=== PATIENT | female | born 1950 | race Caucasian/White ===

== ENCOUNTER 2018-01-22 03:47 | Emergency (ER) | payer OTHER, BC ==
--- OUTSIDE RECORDS SUMMARY | 2018-01-22 03:49 | XMS REPORT ---
:1950 Author Organization [employer] Care Team Providers Name Role Phone Raymond Courtney Provider Role Unavailable Allergies, Adverse Reactions, Alerts Substance Reaction Event Type Sulfa Allergy Info Not Available Drug Allergy Encounters Encounter Location Date Echo report [facility] Apr 21, 2016 Unknown [facility] Apr 01, 2016 Problems Problem Type Condition ICD-9 Code Onset Dates Condition Status Assessment Reflux esophagitis K21.0 Active Assessment Essential (primary) hypertension I10 Active Assessment Hyperlipidemia, unspecified E78.5 Active Problem Hyperlipidemia, unspecified E78.5 Active Problem Reflux esophagitis K21.0 Active Problem Essential (primary) hypertension I10 Active Assessment Chest pain, unspecified R07.9 Active Assessment Palpitations R00.2 Active Problem Chest pain, unspecified R07.9 Active Problem Palpitations R00.2 Active Medications Medication Code System Code Instructions Start End Date Status Dosage Date carvedilol MULTUM 35135 25 mg orally 2 Active 1 tab(s) times a day Zantac 150 MULTUM 4742 150 mg orally qd Active 1 tab(s) cyclobenzaprine MULTUM 12733 10 mg orally 3 Active 1 tab(s) times a day Crestor MULTUM 99210 10 mg orally Active 1 tab(s) once a day (at bedtime) Nexium MULTUM 72581 40 mg orally Active 1 cap(s) once a day Colace MULTUM 4971 sodium 100 mg Active 1 cap(s) orally 2 times a day spironolactone MULTUM 48281 25 mg orally Active 1 tab(s) daily Hydrocodone/Acetam Unknown 0 Active Unknown hydrochlorothiazide MULTUM 17074 12.5 mg-100 mg Active 1 tab(s) -losartan orally once a day Social History Social History Element Qualifiers Date Reported Caffeine: yes. frequency: Apr 01, 2016 Physical Activities: yes. Apr 01, 2016 Tobacco Use: . Smoking Status: never smoker Apr 01, 2016 Occupation: . retired Apr 01, 2016 Vital Signs Date/Time: Apr 01, 2016 Blood Pressure Diastolic 80 mm Hg Blood Pressure Systolic 118 mm Hg Weight 175 lbs Height 59 in Summary Purpose [employer]ClinicalWorks Submission
--- OUTSIDE RECORDS SUMMARY | 2018-01-22 03:49 | XMS REPORT ---
:1950 Author Organization [employer] Care Team Providers Name Role Phone Raymond Courtney Provider Role Unavailable Encounters Encounter Location Date Echo report [facility] Apr 21, 2016 Problems Problem Type Condition ICD-9 Code Onset Dates Condition Status Problem Hyperlipidemia, unspecified E78.5 Active Problem Reflux esophagitis K21.0 Active Problem Essential (primary) hypertension I10 Active Problem Chest pain, unspecified R07.9 Active Problem Palpitations R00.2 Active Social History Social History Element Qualifiers Date Reported Caffeine: yes. frequency: Apr 01, 2016 Physical Activities: yes. Apr 01, 2016 Tobacco Use: . Smoking Status: never smoker Apr 01, 2016 Occupation: . retired Apr 01, 2016 Summary Purpose eClinicalWorks Submission
--- OUTSIDE RECORDS SUMMARY | 2018-01-22 03:49 | XMS REPORT | Continuity of Care Document ---
:1950 Author Organization Interface Problems Problem Status Onset Classification Date Comments Source Date Reported Hyperlipidemia, Active Diagnosis 04/23/2016 Comp [facility] Reflux Active Diagnosis 04/23/2016 Comp esophagitis [facility] Essential Active Diagnosis 04/23/2016 Comp hypertension [facility] Chest pain, Active Diagnosis 04/23/2016 Comp unspecified [facility] Palpitations Active Diagnosis 04/23/2016 [facility] Medications Medication Details Route Status Patient Ordering Order Source Instructions Provider Date carvedilol 1 tab(s) orally Active 25 mg orally 2 Courtney Comp times a day [facility] Zantac 150 1 tab(s) orally Active 150 mg orally Courtney Comp qd [facility] cyclobenzaprine 1 tab(s) orally Active 10 mg orally 3 Courtney Comp times a day [facility] Crestor 1 tab(s) orally Active 10 mg orally Courtney Comp once a day (at Heart bedtime) Care Nexium 1 cap(s) orally Active 40 mg orally Courtney Comp once a day [facility] Colace 1 cap(s) orally Active sodium 100 mg Courtney Comp orally 2 times Heart a day Care spironolactone 1 tab(s) orally Active 25 mg orally Courtney Comp daily [facility] Hydrocodone/Acetam Unknown NA Active Court[facility] hydrochlorothiazid 1 tab(s) orally Active 12.5 mg-100 mg Courtney Comp e-losartan orally once a Heart day Care Allergies, Adverse Reactions, Alerts Substance Category Reaction Severity Reaction Status Date Comments Source type Reported Sulfa Adverse Info Not Adverse Active Comp Allergy Reaction Available Reaction 6 [facility] Immunizations Immunization Date Given Site Status Last Updated Comments Source Results Order Results Value Reference Date Interpretation Comments Source Name Range Vital Signs Vital Sign Value Date Comments Source Diastolic (mm Hg) 80 04/01/2016 [facility] Systolic (mm Hg) 118 04/01/2016 [facility] Weight 175 04/01/2016 [facility] Height 59 04/01/2016 [facility] Encounters Location Location Encounter Encounter Reason Attending ADM DC Status Source Details Type Number For Provider Date Date Visit Comprehensive Unknown [id number] 04/01 04/01 [facility] [id number] /2015 [facility] [id number] Care [id number] [facility] [id number] 04/21 04/21 [facility] report [id number] /2015 [facility] [id number] [facility] [id number] [facility] [id number] 04/21 04/21 [facility] report [id number] /2015 [facility] [id number] Care [id number] Procedures Procedure Code Date Perfomer Comments Source
[2018-01-22] MEDS ORDERED: ONDANSETRON 4 MG/2 ML VIAL ONE ×2 (04:17→05:20)
[2018-01-22] MEDS ORDERED: FENTANYL CITR 100 MCG/2 ML ONE (04:17)
[2018-01-22 04:40] LABS: ALT/SGPT 43 U/L (12-78); AST/SGOT 36 U/L (15-37); Alkaline Phosphatase 127 U/L (45-117); BUN Blood Urea Nitrogen 12 mg/dL (7-18); Bicarbonate 26 mmol/L (21-32); Bilirubin Direct 0.2 mg/dL (0-0.2); Bilirubin Total 0.6 mg/dL (0.2-1.0); Glucose Level 110 mg/dL (74-106); Magnesium 2.1 mg/dL (1.8-2.4); NT PRO-BNP 116 pg/mL (<125); Potassium 3.2 mmol/L (3.5-5.1); Protein, Total 8.1 g/dL (6.4-8.2); Sodium Level 140 mmol/L (136-145); Troponin (Emerg Dept Use Only) < 0.02 ng/mL (0.0-0.045)
[2018-01-22 04:42] LABS: Protime INR 1.06
[2018-01-22 04:43] LABS: Absolute Lymphocytes (CBC) 2.9 K/uL (0.7-4.9); Absolute Monocytes 0.9 K/uL (0.1-1.3); Absolute Neutrophil 6.5 K/uL (1.8-8.0); Basophils % 0.4 % (0-1.3); Eosinophils % 1.7 % (0-4.4); Hematocrit 41.5 % (36.0-45.0); Lymphocytes % 27.2 % (15.3-44.8); MCH 32.3 pg (27.0-35.0); MCV 90.4 fL (80-100); MPV 8.4 fL (7.6-11.3); Monocytes % 8.7 % (3.3-12.3); RBC Red Blood Cell Count 4.59 M/uL (3.86-4.86)
--- NOTE | 2018-01-22 05:31 | EDPHYS ---
Physician Documentation [facility] Name: Diana Dominique Age: 67 yrs Sex: Female : 1950 Arrival Date: 01/22/2018 Time: 04:00 Bed 5 Private MD: Reynaldo Ely V ED Physician Toby Jordan HPI: 01/22 04:06 This 67 yrs old Female presents to ER via Wheelchair with complaints of Hip zahra Pain. 04:06 The patient or guardian reports decreased range of motion, pain. that occurred at home, zahra sustained from a fall, There is no obvious deformity, The patient is able to ambulate with assistance. The patient is able to bear partial body weight. There is no radiation of the patient's discomfort. The complaints affect the pelvis. Onset: The symptoms/episode began/occurred just prior to arrival. Modifying factors: The symptoms are alleviated by remaining still, the symptoms are aggravated by any movement. Associated signs and symptoms: Pertinent positives: None. Severity of symptoms: At their worst the symptoms were moderate, in the emergency department the symptoms have improved, moderately. The patient has not experienced similar symptoms in the past. Historical: - Allergies: 04:08 Sulfa (Sulfonamide Antibiotics); fc - Home Meds: 04:08 Purdy 5-325 mg Oral tab 1 tab twice a day [Active]; carvedilol 25 mg oral tab 1 tab 2 fc times per day [Active]; 04:24 Crestor 10 mg oral tab 1 tab once daily [Active]; omeprazole 40 mg Oral cpDR 1 cap once fc daily [Active]; oxybutynin chloride 10 mg Oral tr24 1 tab daily [Active]; losartan-hydrochlorothiazide 100-12.5 mg oral tab 1 tab once daily [Active]; tizanidine 2 mg oral tab 1 tabs three times a day [Active]; - PMHx: 04:08 Chronic pain; Hypertension; High Cholesterol; GERD; fc - PSHx: 04:08 bialteral hip replacements; Knee surgery; back surg; bilateral wrist surg; fc Hysterectomy; Cholecystectomy; hand surg; - Immunization history:: Last tetanus immunization: unknown, Flu vaccine is not up to date. - Social history:: Smoking status: Patient/guardian denies using tobacco. - Ebola Screening: : Patient negative for fever greater than or equal to 101.5 degrees Fahrenheit, and additional compatible Ebola Virus Disease symptoms Patient denies exposure to infectious person Patient denies travel to an Ebola-affected area in the 21 days before illness onset. - Family history:: not pertinent. ROS: 04:06 Constitutional: Negative for fever, chills, and weight loss, Eyes: Negative for injury, zahra pain, redness, and discharge, ENT: Negative for injury, pain, and discharge, Neck: Negative for injury, pain, and swelling, Cardiovascular: Negative for chest pain, palpitations, and edema, Respiratory: Negative for shortness of breath, cough, wheezing, and pleuritic chest pain, Abdomen/GI: Negative for abdominal pain, nausea, vomiting, diarrhea, and constipation, Back: Negative for injury and pain, : Negative for injury, bleeding, discharge, and swelling, Skin: Negative for injury, rash, and discoloration, Neuro: Negative for headache, weakness, numbness, tingling, and seizure, Psych: Negative for depression, anxiety, suicide ideation, homicidal ideation, and hallucinations, Allergy/Immunology: Negative for hives, rash, and allergies, Endocrine: Negative for neck swelling, polydipsia, polyuria, polyphagia, and marked weight changes, Hematologic/Lymphatic: Negative for swollen nodes, abnormal bleeding, and unusual bruising. 04:06 MS/extremity: Positive for decreased range of motion, pain, swelling, tenderness, of the pelvis, left hip, left gluteal fold, left inner thigh, left upper thigh and left quadriceps. Exam: 04:06 Constitutional: This is a well developed, well nourished patient who is awake, alert, zahra and in no acute distress. Head/Face: Normocephalic, atraumatic. Eyes: Pupils equal round and reactive to light, extra-ocular motions intact. Lids and lashes normal. Conjunctiva and sclera are non-icteric and not injected. Cornea within normal limits. Periorbital areas with no swelling, redness, or edema. ENT: Nares patent. No nasal discharge, no septal abnormalities noted. Tympanic membranes are normal and external auditory canals are clear. Oropharynx with no redness, swelling, or masses, exudates, or evidence of obstruction, uvula midline. Mucous membranes moist. Neck: Trachea midline, no thyromegaly or masses palpated, and no cervical lymphadenopathy. Supple, full range of motion without nuchal rigidity, or vertebral point tenderness. No Meningismus. Chest/axilla: Normal chest wall appearance and motion. Nontender with no deformity. No lesions are appreciated. Cardiovascular: Regular rate and rhythm with a normal S1 and S2. No gallops, murmurs, or rubs. Normal PMI, no JVD. No pulse deficits. Respiratory: Lungs have equal breath sounds bilaterally, clear to auscultation and percussion. No rales, rhonchi or wheezes noted. No increased work of breathing, no retractions or nasal flaring. Abdomen/GI: Soft, non-tender, with normal bowel sounds. No distension or tympany. No guarding or rebound. No evidence of tenderness throughout. Skin: Warm, dry with normal turgor. Normal color with no rashes, no lesions, and no evidence of cellulitis. Neuro: Awake and alert, GCS 15, oriented to person, place, time, and situation. Cranial nerves II-XII grossly intact. Motor strength 5/5 in all extremities. Sensory grossly intact. Cerebellar exam normal. Normal gait. Psych: Awake, alert, with orientation to person, place and time. Behavior, mood, and affect are within normal limits. 04:06 Back: ROM is painful, normal spinal alignment noted, CVA tenderness, is absent, vertebral tenderness, is not appreciated, muscle spasm, is appreciated in the left low back, left mid back, right mid back and right low back. Vital Signs: 04:00 BP 156 / 80; Pulse 84; Resp 20; Temp 97.6(O); Pulse Ox 100% on R/A; Weight 79.83 kg fc (R); Height 5 ft. 9 in. (175.26 cm) (R); Pain 10/10; 05:23 BP 146 / 75; Pulse 78; Resp 20; Pulse Ox 100% on R/A; Pain 8/10; fc 06:32 BP 144 / 68; Pulse 72; Resp 20; Pulse Ox 100% on R/A; Pain 3/10; fc 06:48 BP 124 / 76; Pulse 76; Resp 20; Temp 98.0(O); Pulse Ox 100% on R/A; Pain 2/10; fc 04:00 Body Mass Index 25.99 (79.83 kg, 175.26 cm) fc MDM: 04:09 Data reviewed: vital signs, nurses notes, lab test result(s), EKG, radiologic studies, [facility] CT scan, plain films. 04:10 Patient medically screened. [facility] 01/22 04:06 Order name: Basic Metabolic Panel [facility] 01/22 04:06 Order name: CBC with Diff; Complete Time: 05:26 [facility] 01/22 04:06 Order name: LFT's [facility] 01/22 04:06 Order name: Magnesium; Complete Time: 05: [facility] 01/22 04:06 Order name: NT PRO-BNP; Complete Time: 05: [facility] 01/22 04:06 Order name: PT-INR; Complete Time: 05: [facility] 01/22 04:06 Order name: Troponin (emerg Dept Use Only); Complete Time: 05: [facility] 01/22 04:06 Order name: XRAY Chest (1 view) [facility] 01/22 04:06 Order name: Pelvis XRAY [facility] 01/22 04:06 Order name: CT Lumbar Spine Wo Con [facility] 01/22 04:06 Order name: Hip Left 2 View XRAY [facility] 01/22 04:06 Order name: Femur Left XRAY [facility] 01/22 04:07 Order name: Basic Metabolic Panel; Complete Time: 05:26 [facility] 01/22 04:07 Order name: Liver (Hepatic) Function; Complete Time: 05: [facility] 01/22 04:06 Order name: EKG; Complete Time: 04:07 [facility] 01/22 04:06 Order name: Cardiac monitoring; Complete Time: 04: [facility] 01/22 04:06 Order name: EKG - Nurse/Tech; Complete Time: 04:18 [facility] 01/22 04:06 Order name: IV Saline Lock; Complete Time: 04: [facility] 01/22 04:06 Order name: Labs collected and sent; Complete Time: 04:09 [facility] 01/22 04:06 Order name: O2 Per Protocol; Complete Time: 04: [facility] 01/22 04:06 Order name: O2 Sat Monitoring; Complete Time: 04: [facility] 01/22 04:06 Order name: Femur Right XRAY [facility] 01/22 05:45 Order name: Pelvis Wo Cont EDMS Administered Medications: 04:15 Drug: Zofran 4 mg Route: IVP; Site: right antecubital; fc 04:45 Follow up: Response: No adverse reaction; Nausea is decreased fc 04:17 Drug: fentaNYL (PF) 50 mcg Route: IVP; Site: right antecubital; fc 04:45 Follow up: Response: No adverse reaction; Nausea is decreased fc 04:45 Follow up: Response: No adverse reaction; Pain is decreased fc 05:18 Drug: Zofran 4 mg Route: IVP; Site: right antecubital; fc 05:46 Follow up: Response: No adverse reaction; Nausea is decreased 05:20 Drug: fentaNYL (PF) 50 mcg Route: IVP; Site: right antecubital; fc 05:46 Follow up: Response: No adverse reaction; Pain is decreased fc 06:32 Drug: Potassium Effervescent Tablet 25 mEq Route: PO; 06:49 Follow up: Response: No adverse reaction; No change in condition Disposition: 01/22/18 05:30 Discharged to Home. Impression: Fall due to bumping against object, Pain in left hip, Other chronic pain, Hypokalemia. - Condition is Stable. - Discharge Instructions: Joint Pain, Back Pain, Adult, Chronic Back Pain, Chronic Pain, Potassium Content of Foods, Fall Prevention in the Home, Musculoskeletal Pain, Back Pain, Adult, [id number], Hip Pain. - Prescriptions for Tylenol- Codeine #3 300-30 mg Oral Tablet - take 2 tablet by ORAL route every 6 hours As needed; 30 tablet. Valium 2 mg Oral Tablet - take 1 tablet by ORAL route every 8 hours As needed; 20 tablet. - Medication Reconciliation Form, Thank You Letter, Antibiotic Education, Prescription Opioid Use form. - Follow up: Reynaldo Ely MD; When: 2 - 3 days; Reason: Recheck today's complaints, Continuance of care, Re-evaluation by your physician. Follow up: Rodrigo Benton MD; When: 2 - 3 days; Reason: Recheck today's complaints, Re-evaluation by your physician. - Problem is new. - Symptoms have improved. Signatures: Dispatcher [employer] Toby Gruber MD MD cha Chretien, Felicia RN RN fc Corrections: (The following items were deleted from the chart) 04:24 04:08 Home Meds: Crestor 20 mg oral tab 1 tab once daily; fc 04:24 04:08 Home Meds: Nexium 40 mg Oral cpDR 1 cap once daily; fc 04:24 04:08 Home Meds: Vesicare 10 mg oral tab 1 tab once daily; fc fc 04:24 04:08 Home Meds: losartan 100 mg oral tab 1 tab once daily; fc 06:09 05:45 Hip Left Wo Con ordered. [facility] EDMS 06:09 05:45 Hip Right Wo Con ordered. [facility] 06:26 05:30 01/22/2018 05:30 Discharged to Home. Impression: Fall due to bumping against zahra object; Pain in left hip; Other chronic pain; Hypokalemia. Condition is Stable. Forms are Medication Reconciliation Form, Thank You Letter, Antibiotic Education, Prescription Opioid Use. Follow up: Reynaldo Ely; When: 2 - 3 days; Reason: Recheck today's complaints, Continuance of care, Re-evaluation by your physician. Problem is new. Symptoms have improved. [facility] 07:16 06:26 01/22/2018 05:30 Discharged to Home. Impression: Fall due to bumping against fc object; Pain in left hip; Other chronic pain; Hypokalemia. Condition is Stable. Discharge Instructions: Joint Pain, Chronic Pain, Potassium Content of Foods, Fall Prevention in the Home, Musculoskeletal Pain, Hip Pain, Back Pain, Adult, Chronic Back Pain, Back Pain, Adult, [id number]. Prescriptions for Tylenol-Codeine #3 300-30 mg Oral Tablet - take 2 tablet by ORAL route every 6 hours As needed; 30 tablet, Valium 2 mg Oral Tablet - take 1 tablet by ORAL route every 8 hours As needed; 20 tablet. and Forms are Medication Reconciliation Form, Thank You Letter, Antibiotic Education, Prescription Opioid Use. Follow up: Reynaldo Ely; When: 2 - 3 days; Reason: Recheck today's complaints, Continuance of care, Re-evaluation by your physician. Follow up: Rodrigo Benton; When: 2 - 3 days; Reason: Recheck today's complaints, Re-evaluation by your physician. Problem is new. Symptoms have improved. zahra
--- NOTE | 2018-01-22 05:31 | ER ---
Nurse's Notes [facility] Name: Diana Dominique Age: 67 yrs Sex: Female : 1950 Arrival Date: 01/22/2018 Time: 04:00 Bed 5 Private MD: Reynaldo Ely V Diagnosis: Fall due to bumping against object;Pain in left hip;Other chronic pain;Hypokalemia Presentation: 01/22 04:00 Presenting complaint: Patient states: that she feel one week ago off the toilet and fc hurt her left hip. States that she heard something pop. Pain has gotten progressively worse since then. Transition of care: patient was not received from another setting of care. Onset of symptoms was January 14, 2018. Risk Assessment: Do you want to hurt yourself or someone else? Patient reports no desire to harm self or others. Initial Sepsis Screen: Does the patient meet any 2 criteria? No. Patient's initial sepsis screen is negative. Does the patient have a suspected source of infection? No. Patient's initial sepsis screen is negative. Care prior to arrival: None. 04:00 Method Of Arrival: Wheelchair fc 04:00 Acuity: ABDELRAHMAN 3 fc Triage Assessment: 04:00 General: Appears distressed, uncomfortable, slender, well groomed, Behavior is fc cooperative, appropriate for age, anxious. Pain: Complains of pain in left hip Pain currently is 10 out of 10 on a pain scale. Quality of pain is described as aching, sharp, shooting, Pain began 1 week ago Is continuous, Aggravated by increased activity, repositioning, weight bearing. EENT: No deficits noted. Neuro: Level of Consciousness is awake, alert, obeys commands, Oriented to person, place, time, situation. Cardiovascular: No deficits noted. Respiratory: No deficits noted. GI: No deficits noted. : No deficits noted. Derm: Skin is pink, warm \T\ dry. Musculoskeletal: Capillary refill < 3 seconds, Range of motion: limited in left hip. Historical: - Allergies: 04:08 Sulfa (Sulfonamide Antibiotics); fc - Home Meds: 04:08 Raccoon 5-325 mg Oral tab 1 tab twice a day [Active]; carvedilol 25 mg oral tab 1 tab 2 fc times per day [Active]; 04:24 Crestor 10 mg oral tab 1 tab once daily [Active]; omeprazole 40 mg Oral cpDR 1 cap once fc daily [Active]; oxybutynin chloride 10 mg Oral tr24 1 tab daily [Active]; losartan-hydrochlorothiazide 100-12.5 mg oral tab 1 tab once daily [Active]; tizanidine 2 mg oral tab 1 tabs three times a day [Active]; - PMHx: 04:08 Chronic pain; Hypertension; High Cholesterol; GERD; fc - PSHx: 04:08 bialteral hip replacements; Knee surgery; back surg; bilateral wrist surg; fc Hysterectomy; Cholecystectomy; hand surg; - Immunization history:: Last tetanus immunization: unknown, Flu vaccine is not up to date. - Social history:: Smoking status: Patient/guardian denies using tobacco. - Ebola Screening: : Patient negative for fever greater than or equal to 101.5 degrees Fahrenheit, and additional compatible Ebola Virus Disease symptoms Patient denies exposure to infectious person Patient denies travel to an Ebola-affected area in the 21 days before illness onset. - Family history:: not pertinent. Screenin:00 Abuse screen: Denies threats or abuse. Nutritional screening: No deficits noted. fc Tuberculosis screening: No symptoms or risk factors identified. Fall Risk None identified. Assessment: 04:05 Reassessment: No changes from previously documented assessment. Patient and/or family fc updated on plan of care and expected duration. Pain level reassessed. Patient is alert, oriented x 3, equal unlabored respirations, skin warm/dry/pink. See triage assessment. Dr Jordan at bedside to examine pt. 04:26 Reassessment: Pt has gone to radiology dept for xrays via stretcher. fc 05:11 Reassessment: No changes from previously documented assessment. Patient and/or family fc updated on plan of care and expected duration. Pain level reassessed. Patient is alert, oriented x 3, equal unlabored respirations, skin warm/dry/pink. Pt has returned from radiology. Having increased pain. Discussed with Dr Jordan. Pt to get Zofran and Fentanyl. 05:46 Reassessment: Pt attempted to move in the bed and pain is back. Dr Jordan in to see fc and talk with pt. Pt to get CT of hips and pelvis before discharge. 06:33 Reassessment: No changes from previously documented assessment. Patient and/or family fc updated on plan of care and expected duration. Pain level reassessed. Patient is alert, oriented x 3, equal unlabored respirations, skin warm/dry/pink. Pt given medication as ordered. Is pending results of last Ct Scan. 06:48 Reassessment: Dr Jordan discussed results with pt and along with discharge fc instructions. Vital Signs: 04:00 BP 156 / 80; Pulse 84; Resp 20; Temp 97.6(O); Pulse Ox 100% on R/A; Weight 79.83 kg fc (R); Height 5 ft. 9 in. (175.26 cm) (R); Pain 10/10; 05:23 BP 146 / 75; Pulse 78; Resp 20; Pulse Ox 100% on R/A; Pain 8/10; fc 06:32 BP 144 / 68; Pulse 72; Resp 20; Pulse Ox 100% on R/A; Pain 3/10; fc 06:48 BP 124 / 76; Pulse 76; Resp 20; Temp 98.0(O); Pulse Ox 100% on R/A; Pain 2/10; fc 04:00 Body Mass Index 25.99 (79.83 kg, 175.26 cm) ED Course: 04:00 Patient arrived in ED. fc 04:00 Reynaldo Ely MD is Private Physician. fc 04:00 Arm band placed on Patient placed in an exam room, on a stretcher. fc 04:00 Patient has correct armband on for positive identification. Placed in gown. Bed in low fc position. Call light in reach. Side rails up X2. Pulse ox on. NIBP on. 04:00 Initial lab(s) drawn, by me. Inserted saline lock: 20 gauge in right antecubital area, cc using aseptic technique. Blood collected. 04:01 Triage completed. fc 04:03 Toby Jordan MD is Attending Physician. [facility] 04:15 X-ray completed. Patient tolerated procedure poorly. Patient moved to radiology via ag1 stretcher. 04:21 EKG done, by ED staff, reviewed by Toby Jordan MD. cc 04:49 Radiology exam delayed due to PATIENT IS CURRENTLY IN XRAY. ag1 04:58 XRAY Chest (1 view) In Process Unspecified. EDMS 04:58 Pelvis XRAY In Process Unspecified. EDMS 04:58 Hip Left 2 View XRAY In Process Unspecified. EDMS 04:58 Femur Left XRAY In Process Unspecified. EDMS 04:58 Femur Right XRAY In Process Unspecified. EDMS 05:16 CT Lumbar Spine Wo Con In Process Unspecified. EDMS 05:27 Reynaldo Ely MD is Referral Physician. zahra 06:06 Pelvis Wo Cont In Process Unspecified. EDMS 06:26 Rodrigo Benton MD is Referral Physician. zahra 07:13 No provider procedures requiring assistance completed. IV discontinued, intact, fc bleeding controlled, No redness/swelling at site. Pressure dressing applied. Administered Medications: 04:15 Drug: Zofran 4 mg Route: IVP; Site: right antecubital; fc 04:45 Follow up: Response: No adverse reaction; Nausea is decreased fc 04:17 Drug: fentaNYL (PF) 50 mcg Route: IVP; Site: right antecubital; fc 04:45 Follow up: Response: No adverse reaction; Nausea is decreased fc 04:45 Follow up: Response: No adverse reaction; Pain is decreased fc 05:18 Drug: Zofran 4 mg Route: IVP; Site: right antecubital; fc 05:46 Follow up: Response: No adverse reaction; Nausea is decreased fc 05:20 Drug: fentaNYL (PF) 50 mcg Route: IVP; Site: right antecubital; fc 05:46 Follow up: Response: No adverse reaction; Pain is decreased fc 06:32 Drug: Potassium Effervescent Tablet 25 mEq Route: PO; fc 06:49 Follow up: Response: No adverse reaction; No change in condition fc Outcome: 05:30 Discharge ordered by . zahra 07:15 Discharged to home via wheelchair, with significant other. fc 07:15 Condition: good 07:15 Discharge instructions given to patient, significant other, Instructed on discharge instructions, follow up and referral plans. no drinking with medication, no driving heavy equipment, medication usage, Demonstrated understanding of instructions, follow-up care, medications, Prescriptions given X 2. 07:16 Patient left the ED. fc Signatures: Dispatcher [employer] Toby Gruber MD MD cha Chretien, Felicia, RN RN Meka Montenegro Ashley ag1 Corrections: (The following items were deleted from the chart) 04:24 04:08 Home Meds: Crestor 20 mg oral tab 1 tab once daily; [facility] 04: 04:08 Home Meds: Nexium 40 mg Oral cpDR 1 cap once daily; [facility] 04:16 08:08 Home Meds: Vesicare 10 mg oral tab 1 tab once daily; [facility] 04:16 08: Home Meds: losartan 100 mg oral tab 1 tab once daily; [facility]
[2018-01-22] MEDS ORDERED: POTASSIUM 25 MEQ EFFERV TAB ONE (06:22)
--- NOTE | 2018-01-22 06:40 | EKG ---
Test Date: 2018-01-22 Test Time: 04:20:08 Mammography Technologist: MIGUEL MEASUREMENT RESULTS: Intervals: Rate: 75 NE: 172 QRSD: 80 QT: 388 QTc: 433 Rindge: P: 68 NE: 172 QRS: 72 T: 78 INTERPRETIVE STATEMENTS: Normal sinus rhythm ST abnormality, possible digitalis effect Abnormal ECG No previous ECG available for comparison Electronically Signed On 01-22-18 06:40:34 CDT by Yuri Barry
--- NOTE | 2018-01-22 13:40 | RAD REPORT ---
EXAM DESCRIPTION: RAD - Chest Single View - 01/22/2018 4:59 am CLINICAL HISTORY: COUGH Chest pain. COMPARISON: Chest Pa And Lat (2 Views) dated 05/12/2017; Chest Single View dated 05/12/2017; CHEST PA AND LAT 2 VIEW dated 02/29/2012; CHEST PA AND LAT 2 VIEW dated 07/14/2001 FINDINGS: Portable technique limits examination quality. The lungs are grossly clear. The heart is normal in size. No displaced fractures. IMPRESSION: No acute intrathoracic process suspected.
--- NOTE | 2018-01-22 13:44 | RAD REPORT ---
EXAM DESCRIPTION: RAD - Hip Left 2 View - 01/22/2018 5:00 am CLINICAL HISTORY: PAIN History of fall FINDINGS: AP pelvis, left hip and left femur - multiple projections are submitted. Bilateral hip arthroplasties are noted. No unexpected or worrisome hardware finding. Evidence of bony fusion in the lower lumbar spine seen. No acute fracture or subluxation seen.
--- NOTE | 2018-01-22 13:47 | RAD REPORT ---
EXAM DESCRIPTION: RAD - Femur Right - 01/22/2018 5:00 am CLINICAL HISTORY: PAIN History of fall COMPARISON: No comparisons FINDINGS: Right total hip arthroplasty is noted. Right total knee arthroplasty also seen. No hardwar e complication suspected. No acute fracture seen.
--- NOTE | 2018-01-22 13:56 | RAD REPORT ---
EXAM DESCRIPTION: CT - Spine Lumbar Wo Con - 01/22/2018 7:33 am CLINICAL HISTORY: Radiculopathy. PAIN COMPARISON: L Spine With Bending Views dated 01/20/2018; Lumbar Spine 3 Views dated 09/01/2016 TECHNIQUE: Axial noncontrast CT imaging of the lumbar spine was performed with coronal and sagittal re-formatted images. All CT scans are performed using dose optimization technique as appropriate and may include automated exposure control or mA/KV adjustment according to patient size. FINDINGS: Postsurgical changes are present of posterior fusion spanning L2-[address] Chronic mild anterolisthesis of L3 on L4 and L4 on L5 is noted. Multilevel facet arthrosis is noted. No acute fracture suspected. Ossified disc protrusions along the right aspect at at L3-4 and L4-5 noted. Mild right-sided foramina l encroachment is caused by these. IMPRESSION: No acute lumbar spine abnormality. Extensive postsurgical fusion changes L2-5. No hardware failure suspected.
--- NOTE | 2018-01-22 14:24 | RAD REPORT ---
EXAM DESCRIPTION: CT - Pelvis Wo Cont - 01/22/2018 7:33 am CLINICAL HISTORY: PAIN Fall COMPARISON: No comparisons TECHNIQUE: All CT scans are performed using dose optimization technique as appropriate and may inclu de automated exposure control or mA/KV adjustment according to patient size. FINDINGS: Postsurgical changes are present lower lumbar spine. Bilateral hip arthroplasties. No hard griffiths complication evident. No acute fracture or subluxation. IMPRESSION: No acute abnormality detected.
--- NOTE | 2018-01-23 11:28 | RAD REPORT ---
EXAM DESCRIPTION: RAD - Pelvis - 01/22/2018 5:00 am CLINICAL HISTORY: PAIN History of fall FINDINGS: AP pelvis, left hip and left femur - multiple projections are submitted. Bilateral hip arthroplasties are noted. No unexpected or worrisome hardware finding. Evidence of bony fusion in the lower lumbar spine seen. No acute fracture or subluxation seen.
--- NOTE | 2018-01-23 11:29 | RAD REPORT ---
EXAM DESCRIPTION: RAD - Femur Left - 01/22/2018 5:00 am CLINICAL HISTORY: PAIN History of fall FINDINGS: AP pelvis, left hip and left femur - multiple projections are submitted. Bilateral hip arthroplasties are noted. No unexpected or worrisome hardware finding. Evidence of bony fusion in the lower lumbar spine seen. No acute fracture or subluxation seen.
== END 2018-01-22 07:16 | disposition home or self-care (01) ==
LOC: ER 03:47
DX: G89.29 Other chronic pain (principal); E87.6 Hypokalemia; W18.00XA Striking against unspecified object with subsequent fall, initial encounter; Y93.9 Activity, unspecified; Y92.009 Unspecified place in unspecified non-institutional (private) residence as the place of occurrence of the external cause; Z88.2 Allergy status to sulfonamides; I10 Essential (primary) hypertension; E78.00 Pure hypercholesterolemia, unspecified
CPT/HCPCS: 36415; 71045; 72131; 72170; 72192; 73502; 73552 ×2; 80048; 80076; 83735; 83880; 84484; 85025; 85610; 93005; 96374; 96375; 99284; J2405 ×2; J3010

== ENCOUNTER 2024-08-25 18:28 | Emergency (ER) | payer OTHER, BC ==
--- NOTE | 2024-08-25 20:17 | RAD REPORT ---
EXAMINATION: XR RIGHT HUMERUS HISTORY: fall;Pain RIGHT TECHNIQUE: Multiple views of the right humerus were obtained. COMPARISON: None FINDINGS: No acute bone or joint abnormality detected. Moderate AC joint degenerative changes. No foc al suspicious osseous lesion.
--- NOTE | 2024-08-25 20:24 | RAD REPORT ---
Exam: XR Forearm Right Clinical history: fall;Pain Technique: Radiographic views of the right forearm. Findings: No fracture or dislocation seen. Spurring along the medial humeral epicondyle, could reflect chronic tear or sprain along the common flexor origin.
--- NOTE | 2024-08-25 20:43 | RAD REPORT ---
EXAM: CT Thoracic Spine W/o Cont HISTORY: [facility] MAIN pain, fall Bed Name: [id number] COMPARISON: None TECHNIQUE: Multiple contiguous axial images were obtained in a CT of the thoracic spine without contr ast. Sagittal and coronal reformats were performed. One or more of the following dose reduction techniques were used: Automated exposure control, adjustment of the mA and kV according to patient si ze, and iterative reconstruction. Unless otherwise specified, incidental findings do not require dedicated imaging follow-up. FINDINGS: The vertebral bodies and intervertebral discs demonstrate normal height and alignment witho ut fracture or subluxation apart from stable moderate compression deformity at T12, with 5 mm retropulsion of the posterior cortex . Mild multilevel degenerative changes predominantly involving t he endplates, with up to mild degrees of bony foraminal narrowing along the mid thoracic spine.. . The prevertebral and paraspinal soft tissues are unremarkable. The included portions of the lungs and mediastinum are unremarkable. Sequelae of cholecystectomy are incidentally noted. Moderate sized sliding hiatal hernia is also seen. IMPRESSION: No evidence of acute osseous abnormality of the thoracic spine. Chronic appearing moderate compression fracture deformity at T12. Mild multilevel degenerative changes. Moderate-sized sliding hiatal hernia.
--- NOTE | 2024-08-25 20:54 | RAD REPORT ---
EXAMINATION: CT LUMBAR SPINE WITHOUT CONTRAST CLINICAL INDICATION: Female, 74 years old. PAIN TECHNIQUE: Axial CT images were obtained through the lumbar spine in soft tissue and bone windows wit hout intravenous contrast. Coronal and Sagittal reformatted images were created from the data set. One or more of the following dose reduction techniques were used: Automated exposure control, adjustm ent of the mA and/ or kV according to patient size, and/or iterative reconstruction. Unless otherwise specified, incidental findings do not require dedicated imaging follow-up. COMPARISON: 01/22/2019 FINDINGS: For purposes of this dictation, it is assumed that there are 5 non rib-bearing lumbar type vertebrae, and the most caudal fully segmented lumbar vertebra is labeled L5. ALIGNMENT: The lumbar spine demonstrates normal alignment without scoliosis or spondylolisthesis. BONES: Moderate superior endplate compression deformity at T12. Lumbar vertebral body heights are pre served. Sequelae of transpedicular fusion at the L2-3. Sequelae of posterior decompression spanning L3-, with interbody spacers at those levels. Osteopenia along this segment somewhat limits evaluation . No aggressive osseous lesions. DISCS: Intervertebral disc space heights are maintained. LEVELS: No significant bony canal stenosis. Facet and endplate remodeling contribute to the degrees o f neural foraminal narrowing most pronounced at L1-2 bilaterally, and to lesser extent at L5-S1. SOFT TISSUE: No soft tissue abnormalities. IMPRESSION: No acute lumbar spine abnormalities. Sequelae of prior deep reduction, fusion, and degenerative more es as above.
--- NOTE | 2024-08-25 20:58 | RAD REPORT ---
EXAMINATION: CT PELVIS WITHOUT CONTRAST CLINICAL INDICATION: Female, 74 years old.[facility] fall Bed Name: [id number] TECHNIQUE: CT pelvis was performed, without IV contrast, as per department protocol. Axial, sagittal and coronal reconstructions were obtained. One or more of the following dose reduction techniques were used: Automated exposure control, adjustment of the mA and/or kV according to patient size, and/ or iterative reconstruction. Unless otherwise specified, incidental findings do not require dedicated imaging follow-up. COMPARISON: 01/22/2019 FINDINGS: The lack of intravenous contrast limits the sensitivity of this exam for evaluation of solid visceral organs, vascular structures, and retroperitoneum. MUSCULOSKELETAL: No acute or suspicious osseous abnormality. Bilateral hip arthroplasty hardware in p lace, which results in streak artifact, somewhat limiting evaluation. URINARY SYSTEM: No abnormalities of the included kidneys and ureters. Urinary bladder is unremarkable . GASTROINTESTINAL TRACT: Included small bowel is normal in caliber. No wall thickening or bowel inflam matory changes. LYMPH NODES: No lymphadenopathy. ABDOMINAL AORTA AND OTHER VESSELS: Normal caliber aorta and IVC. ADDITIONAL FINDINGS: None. IMPRESSION: No acute abnormalities of the bony pelvis. Evaluation limited by lack of IV contrast.
--- NOTE | 2024-08-25 22:00 | EDPHYS ---
Physician Documentation [facility] Name: Diana Dominique Age: 74 yrs Sex: Female : 1950 Arrival Date: 08/25/2024 Time: 18:28 Bed 18 Private MD: ED Physician Toby Jordan HPI: 08/25 18:52 This 74 yrs old Female presents to ER via Wheelchair with complaints of Fall Injury. cp 18:52 Details of fall: The patient fell from an upright position, while standing, and struck cp a tile surface. Onset: The symptoms/episode began/occurred 2 day(s) ago. 18:52 Associated injuries: The patient sustained injury to the low back, pain, right forearm, cp contusion, ecchymosis, painful injury, right shoulder, painful injury. 18:52 Severity of symptoms: in the emergency department the symptoms are unchanged, despite cp home interventions. Historical: - Allergies: 18:52 Sulfa (Sulfonamide Antibiotics); cm10 - PMHx: 18:52 Chronic pain; GERD; High Cholesterol; Hypertension; Cerebral palsy; cm10 - Immunization history:: Adult Immunizations up to date. - Infectious Disease History:: Denies. - Immunization history: Last tetanus immunization: unknown. - Social history:: Smoking status: Patient denies any tobacco usage or history of. ROS: 18:55 Constitutional: Negative for body aches, chills, fever, poor PO intake, cp 18:55 Eyes: Negative for injury, pain, redness, and discharge, cp 18:55 ENT: Negative for drainage from ear(s), ear pain, sore throat, difficulty swallowing, difficulty handling secretions, 18:55 Neck: Negative for pain with movement, pain at rest, stiffness, 18:55 Cardiovascular: Negative for chest pain, palpitations, 18:55 Respiratory: Negative for cough, shortness of breath, wheezing, 18:55 Abdomen/GI: Negative for abdominal pain, vomiting, diarrhea, constipation, 18:55 Back: Positive for pain at rest, pain with movement, 18:55 MS/extremity: Positive for pain, of the right shoulder and right forearm, Negative for decreased range of motion, deformity, 18:55 Neuro: Negative for altered mental status, headache, loss of consciousness, syncope, near syncope, 18:55 All other systems are negative, Exam: 19:00 Constitutional: The patient appears in no acute distress, alert, awake, cp non-diaphoretic, non-toxic, well developed, well nourished, 19:00 Head/Face: Normocephalic, atraumatic. cp 19:00 Neck: C-spine: vertebral tenderness, is not appreciated, crepitus, is not appreciated, ROM/movement: is normal, is supple, without pain, no range of motions limitations, 19:00 Chest/axilla: Inspection: normal, Palpation: is normal, no crepitus, no tenderness, 19:00 Cardiovascular: Rate: normal, Rhythm: regular, JVD: is not appreciated, 19:00 Respiratory: the patient does not display signs of respiratory distress, Respirations: normal, no use of accessory muscles, no retractions, labored breathing, is not present, Breath sounds: are clear throughout, no decreased breath sounds, no stridor, no wheezing, 19:00 Abdomen/GI: Inspection: abdomen appears normal, Palpation: abdomen is soft and non-tender, in all quadrants, 19:00 Back: pain, that is moderate, of the mid back, ROM is normal, 19:00 Musculoskeletal/extremity: Extremities: noted in the right shoulder: pain, tenderness, There is no evidence of decreased ROM, deformity, noted in the right forearm: ecchymosis, pain, tenderness, no evidence of deformity, 19:00 Neuro: Orientation: to person, place \T\ time. Mentation: is normal, Motor: moves all fours, strength is normal, Sensation: is normal, Vital Signs: 18:51 BP 148 / 87; Pulse 81; Resp 18; Temp 97.8(O); Pulse Ox 100% on R/A; Weight 81.65 kg; cm10 Height 5 ft. 9 in. ; Pain 8/10; 21:21 BP 150 / 75; Pulse 78; Resp 20; Pulse Ox 100% on R/A; kj2 22:08 BP 148 / 78; Pulse 80; Resp 20; Temp 98; Pulse Ox 100% on R/A; kj2 18:51 Body Mass Index 26.58 (81.65 kg, 175.26 cm) cm10 18:51 Pain Scale: Adult cm10 [place] Coma Score: 20:10 Eye Response: spontaneous(4). Motor Response: obeys commands(6). Verbal Response: kj2 oriented(5). Total: 15. Trauma Score (Adult): 20:10 Eye Response: spontaneous(1); Verbal Response: oriented(1); Motor Response: obeys kj2 commands(2); Systolic BP: > 89 mm Hg(4); Respiratory Rate: 10 to 29 per min(4); [place] Score: 15; Trauma Score: 12 MDM: 18:55 Medical Screening Exam initiated zahra 21:00 Differential diagnosis: closed head injury, contusion, fracture, laceration, multiple cp trauma, spinal fracture. 22:00 Data reviewed: vital signs, nurses notes, radiologic studies, CT scan, plain films, and cp as a result, I will discharge patient. 22:00 I considered the following discharge prescriptions or medication management in the emergency department Medications were administered in the Emergency Department. See MAR. Counseling: I had a detailed discussion with the patient and/or guardian regarding the historical points, exam findings, and any diagnostic results supporting the discharge/admit diagnosis, radiology results, to return to the emergency department if symptoms worsen or persist or if there are any questions or concerns that arise at home. Response to treatment: the patient's symptoms have mildly improved after treatment, and as a result, I will discharge patient. 08/25 18:55 Order name: XRAY Humerus RIGHT; Complete Time: 21:46 08/25 21:46 Interpretation: Report reviewed. 08/25 18:55 Order name: XRAY Forearm RIGHT; Complete Time: 21:46 08/25 21:46 Interpretation: Reviewed. 08/25 18:55 Order name: CT Thoracic Spine Wo Cont; Complete Time: 21:46 08/25 21:47 Interpretation: Report reviewed. 08/25 18:55 Order name: CT Lumbar Spine Wo Con; Complete Time: 21:46 08/25 21:47 Interpretation: Report reviewed. 08/25 18:55 Order name: CT Pelvis wo Cont; Complete Time: 21:46 08/25 21:48 Interpretation: Report reviewed. cp Administered Medications: 22:26 Drug: Methocarbamol PO 750 mg PO once Route: PO; kj2 22:27 Follow up: Response: Medication administered at discharge. kj2 22:27 Drug: Hydrocodone-Acetaminophen PO (7.5 mg-325 mg) 1 tabs PO once; RASS on ADMIN: kj2 Combtv4, Very Agttd3, Agttd2, Rstlss1, AlertClm0, Drwsy-1, Lt Sdtn-2, Mod Sdtn-3, Dp Sdtn-4, UnArsble-5 Route: PO; 22:27 Follow up: Response: Medication administered at discharge. kj2 Disposition: 08/26 22:20 Co-signature as Attending Physician, Toby Jordan MD I agree with the assessment and zahra plan of care. Disposition Summary: 08/25/24 22:00 Discharge Ordered Notes: Location: Home cp Problem: new cp Symptoms: have improved cp Condition: Stable cp Diagnosis - Contusion of right forearm cp - Dorsalgia, unspecified cp - Pain in right shoulder cp - Fall on same level from slipping, tripping and stumbling with subsequent striking cp against object Followup: cp - With: Private Physician - When: 2 - 3 days - Reason: Worsening of condition Discharge Instructions: - Discharge Summary Sheet cp - Acute Back Pain, Adult cp - Contusion cp - Musculoskeletal Pain cp - Shoulder Pain cp - Shoulder Range of Motion Exercises cp - Back Exercises cp Forms: - Medication Reconciliation Form cp - Antibiotic Education cp - Prescription Opioid Use cp - Patient Portal Instructions cp - Leadership Thank You Letter cp Signatures: Dispatcher [employer] EDToby Roman MD MD cha Page, Corey, PA PA cp Sowmya Cruz, RN RN cm10 Karolina Norris, RN RN kj2 Corrections: (The following items were deleted from the chart) 08/25 18:56 18:56 Humerus Right+RAD.RAD.BRZ ordered. EDNM EDNM 18:56 18:56 Forearm Right+RAD.RAD.BRZ ordered. EDNM EDNM 18:56 18:56 Thoracic Spine WO Cont+CT.RAD.BRZ ordered. EDNM EDNM 18:56 18:56 Spine Lumbar Wo Con+CT.RAD.BRZ ordered. EDNM EDNM 18:56 18:56 Pelvis Wo Cont+CT.RAD.BRZ ordered. [facility] 08/26 21:02 08/25 18:52 Associated injuries: The patient sustained injury to the low back, pain, cp right forearm, contusion, ecchymosis, painful injury, cp
--- NOTE | 2024-08-25 22:00 | ER ---
Nurse's Notes [facility] Name: Diana Dominique Age: 74 yrs Sex: Female : 1950 Arrival Date: 08/25/2024 Time: 18:28 Bed 18 Private MD: Diagnosis: Contusion of right forearm;Dorsalgia, unspecified;Pain in right shoulder;Fall on same level from slipping, tripping and stumbling with subsequent striking against object Presentation: 08/25 18:51 Chief complaint: Patient states: Tripped and fell in bathroom on . Pt cm10 complaining of pain to left lower back, right arm and right shoulder. Pt did not hit head, No loc. Coronavirus screen: Client denies travel out of the [place] in the last 14 days. Ebola Screen: Patient denies travel to an Ebola-affected area in the 21 days before illness onset. Initial Sepsis Screen: Does the patient meet any 2 criteria? No. Patient's initial sepsis screen is negative. Does the patient have a suspected source of infection? No. Patient's initial sepsis screen is negative. Risk Assessment: Do you want to hurt yourself or someone else? Patient reports no desire to harm self or others. Onset of symptoms was August 25, 2024. 18:51 Method Of Arrival: Wheelchair cm10 18:51 Acuity: ABDELRAHMAN 3 cm10 20:12 Mechanism of Injury: Fall from standing position. Trauma event details: Injury kj2 occurred: August 25, 2024. 22:27 Care prior to arrival: None. kj2 Triage Assessment: 18:52 General: Appears in no apparent distress. comfortable, Behavior is calm, cooperative, cm10 appropriate for age. Pain: Complains of pain in left flank and right arm Pain currently is 8 out of 10 on a pain scale. Neuro: No deficits noted. Level of Consciousness is awake, alert, obeys commands, Oriented to person, place, time, situation, Appropriate for age. Respiratory: No deficits noted. Airway is patent Respiratory effort is even, unlabored, Respiratory pattern is regular, symmetrical. Historical: - Allergies: 18:52 Sulfa (Sulfonamide Antibiotics); cm10 - PMHx: 18:52 Chronic pain; GERD; High Cholesterol; Hypertension; Cerebral palsy; cm10 - Immunization history:: Adult Immunizations up to date. - Infectious Disease History:: Denies. - Immunization history: Last tetanus immunization: unknown. - Social history:: Smoking status: Patient denies any tobacco usage or history of. Screenin:35 [facility] ED Fall Risk Assessment (Adult) History of falling in the last 3 months, kj2 including since admission No falls in past 3 months (0 pts) Confusion or Disorientation No (0 pts) Intoxicated or Sedated No (0 pts) Impaired Gait No (0 pts) Mobility Assist Device Used No (0 pt) Altered Elimination No (0 pt) Score/Fall Risk Level 0 - 2 = Low Risk Maintained a safe environment, Hourly rounding (assess needs \T\ fall precautionary measures) done. Abuse screen: Denies threats or abuse. Denies injuries from another. Nutritional screening: No deficits noted. Tuberculosis screening: No symptoms or risk factors identified. Primary Survey: 19:35 NO uncontrolled hemorrhage observed. Breathing/Chest: Spontaneous respiratory effort, kj2 equal unlabored respirations, breath sounds clear bilaterally, regular pattern, symmetrical chest rise and fall. Respiratory effort: spontaneous, Breath sounds: clear. Circulation: No external hemorrhage present. Regular and strong central pulse, skin warm/dry/normal color. Disability Pupils are equal, round, reactive to light and accommodation. Exposure/Environment: All clothing and personal items were removed. Forensic evidence collection is not deemed to be indicated at this time. Items placed in patient belonging bag. 19:35 Reassessment Breathing: Spontaneous respiratory effort, equal unlabored respirations, kj2 breath sounds clear bilaterally, regular pattern with symmetrical chest rise and fall. Circulation: No external hemorrhage noted. Regular and strong central pulse, skin warm/dry/normal color. Disability: Pupils Pupils are equal, round, reactive to light and accomodation. Assessment: 19:35 General: Appears in no apparent distress. Behavior is calm, cooperative. Pain: kj2 Complains of pain in right arm and back and left flank Pain currently is 7 out of 10 on a pain scale. Neuro: Level of Consciousness is awake, alert, obeys commands, Oriented to person, place, time, situation. Cardiovascular: Patient's skin is warm and dry. Respiratory: Airway is patent Respiratory effort is even, unlabored. GI: No signs and/or symptoms were reported involving the gastrointestinal system. : No signs and/or symptoms were reported regarding the genitourinary system. 20:30 Reassessment: Patient appears in no apparent distress at this time. Patient and/or kj2 family updated on plan of care and expected duration. Pain level reassessed. Patient is alert, oriented x 3, equal unlabored respirations, skin warm/dry/pink. 21:21 Reassessment: Patient appears in no apparent distress at this time. Patient and/or kj2 family updated on plan of care and expected duration. Pain level reassessed. Patient is alert, oriented x 3, equal unlabored respirations, skin warm/dry/pink. 22:08 Reassessment: Patient appears in no apparent distress at this time. Patient and/or kj2 family updated on plan of care and expected duration. Pain level reassessed. Patient is alert, oriented x 3, equal unlabored respirations, skin warm/dry/pink. Vital Signs: 18:51 BP 148 / 87; Pulse 81; Resp 18; Temp 97.8(O); Pulse Ox 100% on R/A; Weight 81.65 kg; cm10 Height 5 ft. 9 in. ; Pain 8/10; 21:21 BP 150 / 75; Pulse 78; Resp 20; Pulse Ox 100% on R/A; kj2 22:08 BP 148 / 78; Pulse 80; Resp 20; Temp 98; Pulse Ox 100% on R/A; kj2 18:51 Body Mass Index 26.58 (81.65 kg, 175.26 cm) cm10 18:51 Pain Scale: Adult cm10 Viv[place] Coma Score: 20:10 Eye Response: spontaneous(4). Motor Response: obeys commands(6). Verbal Response: kj2 oriented(5). Total: 15. Trauma Score (Adult): 20:10 Eye Response: spontaneous(1); Verbal Response: oriented(1); Motor Response: obeys kj2 commands(2); Systolic BP: > 89 mm Hg(4); Respiratory Rate: 10 to 29 per min(4); [place] Score: 15; Trauma Score: 12 ED Course: 18:29 Patient arrived in ED. im 18:39 Toby Verduzco PA is PHCP. cp 18:39 Toby Jordan MD is Attending Physician. cp 18:52 Triage completed. cm10 18:52 Arm band placed on left wrist. Patient placed in waiting room. cm10 19:25 XRAY Humerus RIGHT In Process Unspecified. EDMS 19:25 XRAY Forearm RIGHT In Process Unspecified. EDMS 19:35 Patient has correct armband on for positive identification. Bed in low position. Call kj2 light in reach. Adult w/ patient. Provided Education on: call light. 19:55 Karolina Norris, RN is Primary Nurse. kj2 20:17 CT Thoracic Spine Wo Cont In Process Unspecified. EDMS 20:17 CT Lumbar Spine Wo Con In Process Unspecified. EDMS 20:17 CT Pelvis wo Cont In Process Unspecified. EDMS 22:16 No provider procedures requiring assistance completed. Patient did not have IV access kj2 during this emergency room visit. 22:16 Patient maintains SpO2 saturation greater than 95% on room air. Thermoregulation: warm kj2 intravenous fluids none needed. Administered Medications: 22:26 Drug: Methocarbamol PO 750 mg PO once Route: PO; kj2 22:27 Follow up: Response: Medication administered at discharge. kj2 22:27 Drug: Hydrocodone-Acetaminophen PO (7.5 mg-325 mg) 1 tabs PO once; RASS on ADMIN: kj2 Combtv4, Very Agttd3, Agttd2, Rstlss1, AlertClm0, Drwsy-1, Lt Sdtn-2, Mod Sdtn-3, Dp Sdtn-4, UnArsble-5 Route: PO; 22:27 Follow up: Response: Medication administered at discharge. kj2 Medication: 20:12 VIS not applicable for this client. kj2 Output: 20:10 Urine: 300ml (Voided); Total: 300ml. kj2 Outcome: 22:00 Discharge ordered by . cp 22:27 Discharged to home ambulatory, kj2 22:27 Condition: stable 22:27 Discharge instructions given to patient, family, Instructed on discharge instructions, follow up and referral plans. Demonstrated understanding of instructions, follow-up care, 22:27 Patient's length of stay was not longer than 2 hours. 22:30 Patient left the ED. kj2 Signatures: Dispatcher [employer] EDMS Toby Verduzco PA PA cp Mendoza, Itzel im Martinez, Clarissa, RN RN cm10 Karolina Norris, TYLER RN kj2
[2024-08-25] MEDS ORDERED: methocarbamoL 750 MG TAB ONE (22:11)
[2024-08-25] MEDS ORDERED: HYDROCODONE/APAP 7.5/325 MG TAB ONE (22:12)
[2024-08-25 23:32] VITALS: O2SAT 100
[2024-08-25 23:35] VITALS: BP 148/78; TEMP 98
== END 2024-08-25 22:30 | disposition home or self-care (01) ==
LOC: ER 18:28
DX: S50.11XA Contusion of right forearm, initial encounter (principal); M54.9 Dorsalgia, unspecified; M25.511 Pain in right shoulder; W01.198A Fall on same level from slipping, tripping and stumbling with subsequent striking against other object, initial encounter; G80.9 Cerebral palsy, unspecified
CPT/HCPCS: 72128; 72131; 72192; 99284

== ENCOUNTER 2024-11-27 12:14 | Emergency (ER) | payer OTHER, BC ==
[2024-11-27] MEDS ORDERED: LIDOCAINE 1% 20 ML MDV ONE (12:23)
--- NOTE | 2024-11-27 12:46 | EDPHYS ---
Physician Documentation [facility] Name: Diana Dominique Age: 74 yrs Sex: Female : 1950 Arrival Date: 11/27/2024 Time: 12:14 Bed 20 Private MD: ED Physician Nava Cardoza HPI: 11/27 12:18 This 74 yrs old Female presents to ER via Unassigned with complaints of laceration. kb 12:18 Pt is a 74 year old female who presents for laceration to left thumb that occurred just kb precinct captain. States she was trimming the fat off of a frozen roast and the knife slipped causing laceration. Reports last tetanus shot was years ago. . Historical: - Allergies: 12:27 Sulfa (Sulfonamide Antibiotics); iw - PMHx: 12:27 Cerebral Palsy; GERD; Hypertension; High Cholesterol; Chronic pain; iw - Immunization history:: Adult Immunizations up to date. - Infectious Disease History:: Denies. - Social history:: Smoking status: unknown. ROS: 12:19 Constitutional: As per HPI kb Exam: 12:19 Constitutional: This is a well developed, well nourished patient who is awake, alert, kb and in no acute distress. Head/Face: Normocephalic, atraumatic. ENT: Moist Mucous membranes Respiratory: Respirations even and unlabored. No increased work of breathing. Talking in full sentences MS/ Extremity: Pulses equal, no cyanosis. Neurovascular intact. Full, normal range of motion. Neuro: Awake and alert, GCS 15, oriented to person, place, time, and situation. 12:45 Skin: injury, laceration(s), the wound is approximately 2 cm(s), of the dorsal aspect kb of proximal phalanx of left thumb, that can be described as clean, no foreign body, linear, without bleeding, Vital Signs: 12:27 BP 115 / 89; Pulse 75; Resp 16; Temp 98.1; Pulse Ox 99% on R/A; Weight 73.94 kg; Height iw 5 ft. 8 in. ; 12:27 Body Mass Index 24.78 (73.94 kg, 172.72 cm) iw Laceration: 12:44 Wound Repair of 2cm ( 0.8in ) subcutaneous laceration to dorsal aspect of proximal kb phalanx of left thumb. Linear shaped.. Distal neuro/vascular/tendon intact. Anesthesia: Wound infiltrated with 2 mls of 1% lidocaine. Wound prep: Extensive cleansing with hibiclenz by me, Wound irrigation with saline by me. Skin closed with 5 5-0 Prolene using simple sutures and sterile technique. Patient tolerated well. MDM: 12:17 Medical Screening Exam initiated kb 12:19 Differential diagnosis: superficial laceration, tendon injury, vascular injury. Data kb reviewed: vital signs, nurses notes. Test considered but Not performed: X-ray: hand xray considered but pt has full rom, laceration is superficial. Historians other than the Patient: Spouse/Significant Other: spouse. Counseling: I had a detailed discussion with the patient and/or guardian regarding the historical points, exam findings, and any diagnostic results supporting the discharge/admit diagnosis, the need for outpatient follow up, a family practitioner, to return to the emergency department if symptoms worsen or persist or if there are any questions or concerns that arise at home. 11/27 12:17 Order name: Dressing - Wound; Complete Time: 12:56 kb 11/27 12:17 Order name: Gloves, Sterile; Complete Time: 12:56 kb 11/27 12:17 Order name: Prolene, Sutures; Complete Time: 12:56 kb 11/27 12:17 Order name: Setup Suture Tray; Complete Time: 12:56 kb Administered Medications: 12:47 Drug: Lidocaine Infiltration (1 %) 1 vials 5 ml Infiltration once; to bedside {Note: by ap3 erika mcclellan NP.} Volume: 5 ml; Route: Infiltration; 13:04 Follow up: Response: No adverse reaction ap3 13:03 Drug: Boostrix Tdap IM 0.5 ml IM once; as a single dose Route: IM; Site: right deltoid; ap3 13:04 Follow up: Response: (VIS) Vaccine information sheet provided today. Questions and/or ap3 concerns addressed. VIS edition date: Nov 28, 2020.; Medication administered at discharge. Disposition Summary: 11/27/24 12:45 Discharge Ordered Notes: Location: Home kb Condition: Stable kb Diagnosis - Laceration without foreign body of left thumb without damage to nail kb Followup: kb - With: Emergency Department - When: As needed - Reason: Worsening of condition Followup: kb - With: Private Physician - When: 2 - 3 days - Reason: Recheck today's complaints, Continuance of care, Re-evaluation by your physician Discharge Instructions: - Discharge Summary Sheet kb - Laceration Care, Adult, [id number] kb Forms: - Medication Reconciliation Form kb - Antibiotic Education kb - Prescription Opioid Use kb - Patient Portal Instructions kb - Leadership Thank You Letter gauri Signatures: Amber Mcclellan FNP-C FNP-Anel Alves RN RN iw Asia Richard RN RN ap3
--- NOTE | 2024-11-27 12:46 | ER ---
Nurse's Notes [facility] Name: Diana Dominique Age: 74 yrs Sex: Female : 1950 Arrival Date: 11/27/2024 Time: 12:14 Bed 20 Private MD: Diagnosis: Laceration without foreign body of left thumb without damage to nail Presentation: 11/27 12:26 Chief complaint: Patient states: was trying to trim fat off a frozen roast and cut her iw left thumb. Coronavirus screen: At this time, the client does not indicate any symptoms associated with coronavirus-19. Ebola Screen: No symptoms or risks identified at this time. Initial Sepsis Screen: Does the patient meet any 2 criteria? No. Patient's initial sepsis screen is negative. Does the patient have a suspected source of infection? No. Patient's initial sepsis screen is negative. Risk Assessment: Do you want to hurt yourself or someone else? Patient reports no desire to harm self or others. 12:26 Acuity: ABDELRAHMAN 4 iw 12:26 Method Of Arrival: Ambulatory iw 12:27 Onset of symptoms was November 27, 2024. iw Triage Assessment: 13:04 General: Appears in no apparent distress. Behavior is calm, cooperative, appropriate ap3 for age. Pain: Complains of pain in left hand. Neuro: Level of Consciousness is awake, alert, obeys commands, Oriented to person, place, time, situation, Appropriate for age. Derm: Wound noted left hand. Historical: - Allergies: 12:27 Sulfa (Sulfonamide Antibiotics); iw - PMHx: 12:27 Cerebral Palsy; GERD; Hypertension; High Cholesterol; Chronic pain; iw - Immunization history:: Adult Immunizations up to date. - Infectious Disease History:: Denies. - Social history:: Smoking status: unknown. Screenin:04 [facility] ED Fall Risk Assessment (Adult) History of falling in the last 3 months, ap3 including since admission No falls in past 3 months (0 pts) Confusion or Disorientation No (0 pts) Intoxicated or Sedated No (0 pts) Impaired Gait No (0 pts) Mobility Assist Device Used No (0 pt) Altered Elimination No (0 pt) Score/Fall Risk Level 0 - 2 = Low Risk Oriented to surroundings, Maintained a safe environment, Educated pt \T\ family on fall prevention, incl call for assistance when getting out of bed, Assessed \T\ reinforced patient's understanding of fall precautions, Hourly rounding (assess needs \T\ fall precautionary measures) done, Used ambulatory aids as needed (educated on \T\ assisted with). Abuse screen: Denies threats or abuse. Nutritional screening: No deficits noted. Tuberculosis screening: No symptoms or risk factors identified. Vital Signs: 12:27 BP 115 / 89; Pulse 75; Resp 16; Temp 98.1; Pulse Ox 99% on R/A; Weight 73.94 kg; Height iw 5 ft. 8 in. ; 12:27 Body Mass Index 24.78 (73.94 kg, 172.72 cm) iw ED Course: 12:16 Patient arrived in ED. kb 12:16 [facility] kb 12:16 Nava Cardoza MD is Attending Physician. kb 12:27 Triage completed. iw 12:28 Arm band placed on. iw 13:05 Assist provider with laceration repair on left hand using sutures. Set up tray. ap3 Performed by Amber SAEED Patient tolerated well. 13:06 Patient has correct armband on for positive identification. Provided Education on: ap3 discharge instructions. 13:06 Patient did not have IV access during this emergency room visit. ap3 Administered Medications: 12:47 Drug: Lidocaine Infiltration (1 %) 1 vials 5 ml Infiltration once; to bedside {Note: by ap3 erika mcclellan, [employer].} Volume: 5 ml; Route: Infiltration; 13:04 Follow up: Response: No adverse reaction ap3 13:03 Drug: Boostrix Tdap IM 0.5 ml IM once; as a single dose Route: IM; Site: right deltoid; ap3 13:04 Follow up: Response: (VIS) Vaccine information sheet provided today. Questions and/or ap3 concerns addressed. VIS edition date: Nov 28, 2020.; Medication administered at discharge. Medication: 13:06 Vaccine Information Statement (VIS) provided today. Questions and/or concerns ap3 addressed. VIS edition date: November 2020. Outcome: 12:45 Discharge ordered by . kb 13:05 Discharged to home ambulatory, with family, ap3 13:05 Condition: good 13:05 Discharge instructions given to patient, Instructed on discharge instructions, follow up and referral plans. wound care, Demonstrated understanding of instructions, follow-up care, medications, Prescriptions given X 13:06 Patient left the ED. ap3 Signatures: Amber Mcclellan, DARLIN LOPEZ-Anel Alves, RN Asia Ortega RN RN ap3 Corrections: (The following items were deleted from the chart) 12:28 12:27 BP 115 / 89; Pulse 75bpm; Resp 16bpm; Pulse Ox 99% RA; Temp 98.1F; iw ifeanyi
[2024-11-27] MEDS ORDERED: TDAP (DIPHTH,PERTUSS(ACELL),TET VAC) 0.5 ML VIAL IMVAC ONE (12:57)
[2024-11-27 13:10] VITALS: BP 115/89; TEMP 98.1; O2SAT 99
== END 2024-11-27 13:06 | disposition home or self-care (01) ==
LOC: ER 12:14
PROC: 0JQK3ZZ Repair Left Hand Subcutaneous Tissue and Fascia, Percutaneous Approach (ICD-10-PCS; principal; 2024-11-27)
DX: S61.012A Laceration without foreign body of left thumb without damage to nail, initial encounter (principal); W26.0XXA Contact with knife, initial encounter; Y93.G3 Activity, cooking and baking; Z23 Encounter for immunization; I10 Essential (primary) hypertension; Z88.2 Allergy status to sulfonamides
CPT/HCPCS: 90715; 96372; 99284; 12041; J2003

== ENCOUNTER 2024-12-04 11:01 | Emergency (ER) | payer OTHER, BC ==
--- NOTE | 2024-12-04 12:24 | RAD REPORT ---
EXAMINATION: XR LEFT HIP CLINICAL INDICATION: . hip pain s/p fall TECHNIQUE: Multiple views of the left hip were obtained. COMPARISON: 01/22/2018 FINDINGS: Left total hip arthroplasty. No evidence of hardware loosening or infection. No acute fra cture seen.
--- NOTE | 2024-12-04 13:00 | EDPHYS ---
Physician Documentation [facility] Name: Diana Dominique Age: 74 yrs Sex: Female : 1950 Arrival Date: 12/04/2024 Time: 11:01 Bed Treatment Private MD: ED Physician Nava Cardoza HPI: 12/04 12:56 This 74 yrs old Female presents to ER via Wheelchair with complaints of Hip Pain. sp3 12:56 74-year-old female with chronic pain, with bilateral hip replacements now presents to sp3 the ED with chief complaint mechanical fall with fall on the left side with bruising. Injury happened just prior to arrival. She denies hitting her head or any other injury. She reports ecchymoses to the left hip. She is able to ambulate however it is painful. She denies any other symptoms and remainder of ROS is negative.. Historical: - Allergies: 11:15 Sulfa (Sulfonamide Antibiotics); hb - PMHx: 11:15 Chronic pain; GERD; Cerebral Palsy; High Cholesterol; Hypertension; hb - Immunization history:: Adult Immunizations up to date. - Infectious Disease History:: Denies. - Social history:: Smoking status: Patient denies any tobacco usage or history of. ROS: 12:57 Constitutional: Negative for fever, chills, and weight loss, Eyes: Negative for injury, sp3 pain, redness, and discharge, ENT: Negative for injury, pain, and discharge, Neck: Negative for injury, pain, and swelling, Cardiovascular: Negative for chest pain, palpitations, and edema, Respiratory: Negative for shortness of breath, cough, wheezing, and pleuritic chest pain, Abdomen/GI: Negative for abdominal pain, nausea, vomiting, diarrhea, and constipation, : Negative for injury, bleeding, discharge, and swelling, Skin: Negative for injury, rash, and discoloration, Neuro: Negative for headache, weakness, numbness, tingling, and seizure, Psych: Negative for depression, anxiety, suicide ideation, homicidal ideation, and hallucinations, Allergy/Immunology: Negative for hives, rash, and allergies, Endocrine: Negative for neck swelling, polydipsia, polyuria, polyphagia, and marked weight changes, 12:57 All other systems are negative, Exam: 12:58 Constitutional: This is a well developed, well nourished patient who is awake, alert, sp3 and in no acute distress. Head/Face: Normocephalic, atraumatic. Neck: Trachea midline, no thyromegaly or masses palpated, and no cervical lymphadenopathy. Supple, full range of motion without nuchal rigidity, or vertebral point tenderness. No Meningismus. Chest/axilla: Normal chest wall appearance and motion. Nontender with no deformity. No lesions are appreciated. Cardiovascular: Regular rate and rhythm with a normal S1 and S2. No gallops, murmurs, or rubs. Normal PMI, no JVD. No pulse deficits. Respiratory: Lungs have equal breath sounds bilaterally, clear to auscultation and percussion. No rales, rhonchi or wheezes noted. No increased work of breathing, no retractions or nasal flaring. Abdomen/GI: Soft, non-tender, with normal bowel sounds. No distension or tympany. No guarding or rebound. No evidence of tenderness throughout. Back: No spinal tenderness. No costovertebral tenderness. Full range of motion. Skin: Warm, dry with normal turgor. Normal color with no rashes, no lesions, and no evidence of cellulitis. Neuro: Awake and alert, GCS 15, oriented to person, place, time, and situation. Cranial nerves II-XII grossly intact. Motor strength 5/5 in all extremities. Sensory grossly intact. Cerebellar exam normal. Normal gait. 12:58 Musculoskeletal/extremity: Moderate area of ecchymoses noted on the left iliac crest. Hip exam is normal with mild pain on flexion. No pain on axial load. Distal neurovascular exam is normal.. Vital Signs: 11:12 BP 127 / 62; Pulse 78; Resp 16; Temp 97.7; Pulse Ox 100% on R/A; Weight 72.57 kg; hb Height 5 ft. 8 in. ; Pain 10/10; 11:12 Body Mass Index 24.33 (72.57 kg, 172.72 cm) hb 11:12 Pain Scale: Adult hb MDM: 11:11 Medical Screening Exam initiated sp3 12:58 Data reviewed: vital signs, nurses notes, radiologic studies. ED course: 74-year-old sp3 female with mechanical fall with hip injury versus hip fracture versus pelvic fracture. X-rays are negative. Vital signs are normal. Will medicate with 2 tabs [place] p.o. and discharged home with conservative treatment.. 12/04 11:16 Order name: Hip Left 2 View XRAY; Complete Time: 12:29 sp3 Administered Medications: 13:14 Drug: HYDROcodone-acetaminophen PO 5 mg-325 mg 2 tabs PO once {Note: pain 10/10 RASS ll1 0.} Route: PO; 13:15 Follow up: Response: No adverse reaction; Pain is unchanged, physician notified ll1 Disposition Summary: 12/04/24 12:59 Discharge Ordered Notes: Location: Home sp3 Condition: Stable sp3 Diagnosis - Left hip contusion sp3 Followup: sp3 - With: Private Physician - When: Upon discharge from the Emergency Department - Reason: Continuance of care Discharge Instructions: - Discharge Summary Sheet sp3 - Contusion sp3 Forms: - Medication Reconciliation Form sp3 - Antibiotic Education sp3 - Prescription Opioid Use sp3 - Patient Portal Instructions sp3 - Leadership Thank You Letter sp3 Prescriptions: - Tramadol 50 mg Oral Tablet - take 1 tablet ORAL route every 8 hours as needed; 12 tablet; Refills: 0, sp3 Product Selection Permitted Signatures: Dispatcher [employer] EDMarcela Romero RN Gilbert Valladares RN RN ll1 Nava Cardoza MD MD sp3
--- NOTE | 2024-12-04 13:00 | ER ---
Nurse's Notes [facility] Name: Diana Dominique Age: 74 yrs Sex: Female : 1950 Arrival Date: 12/04/2024 Time: 11:01 Bed Treatment Private MD: Diagnosis: Left hip contusion Presentation: 12/04 11:12 Chief complaint: Left hip pain after mechanical fall from standing 5 days ago. Had hb bilateral hip replacement [address] Helton at [facility]. Coronavirus screen: At this time, the client does not indicate any symptoms associated with coronavirus-19. Ebola Screen: No symptoms or risks identified at this time. Initial Sepsis Screen: Does the patient meet any 2 criteria? No. Patient's initial sepsis screen is negative. Does the patient have a suspected source of infection? No. Patient's initial sepsis screen is negative. Risk Assessment: Do you want to hurt yourself or someone else? Patient reports no desire to harm self or others. Onset of symptoms was November 30, 2024. 11:12 Method Of Arrival: Wheelchair hb 11:12 Acuity: ABDELRAHMAN 3 hb Historical: - Allergies: 11:15 Sulfa (Sulfonamide Antibiotics); hb - PMHx: 11:15 Chronic pain; GERD; Cerebral Palsy; High Cholesterol; Hypertension; hb - Immunization history:: Adult Immunizations up to date. - Infectious Disease History:: Denies. - Social history:: Smoking status: Patient denies any tobacco usage or history of. Screenin:15 [facility] ED Fall Risk Assessment (Adult) History of falling in the last 3 months, ll1 including since admission Yes- single mechanical fall (1 pt) Confusion or Disorientation No (0 pts) Intoxicated or Sedated No (0 pts) Impaired Gait Yes (1 pt) Mobility Assist Device Used Yes (1 pt) Altered Elimination No (0 pt) Score/Fall Risk Level 3 or more points = High Risk Maintained a safe environment, Hourly rounding (assess needs \T\ fall precautionary measures) done. Abuse screen: Denies threats or abuse. Nutritional screening: No deficits noted. Tuberculosis screening: No symptoms or risk factors identified. Assessment: 13:14 General: Appears uncomfortable, Behavior is calm, cooperative, appropriate for age. ll1 Pain: Complains of pain in hip Quality of pain is described as aching. Musculoskeletal: Circulation, motion, and sensation intact. Capillary refill < 3 seconds, in left toes. Reports pain in L hip. Vital Signs: 11:12 BP 127 / 62; Pulse 78; Resp 16; Temp 97.7; Pulse Ox 100% on R/A; Weight 72.57 kg; hb Height 5 ft. 8 in. ; Pain 10/10; 11:12 Body Mass Index 24.33 (72.57 kg, 172.72 cm) hb 11:12 Pain Scale: Adult hb ED Course: 11:04 Patient arrived in ED. al6 11:09 Nava Cardoza MD is Attending Physician. sp3 11:14 Triage completed. hb 11:30 Patient has correct armband on for positive identification. Provided Education on: ER ll1 procedures and process. 11:55 Hip Left 2 View XRAY In Process Unspecified. EDMS 12:43 Anel Nash, RN is Primary Nurse. iw 13:00 Arm band placed on Patient placed in an exam room, on a stretcher. ll1 13:16 No provider procedures requiring assistance completed. Patient did not have IV access ll1 during this emergency room visit. Administered Medications: 13:14 Drug: HYDROcodone-acetaminophen PO 5 mg-325 mg 2 tabs PO once {Note: pain 10/10 RASS ll1 0.} Route: PO; 13:15 Follow up: Response: No adverse reaction; Pain is unchanged, physician notified ll1 Medication: 13:16 VIS not applicable for this client. ll1 Outcome: 12:59 Discharge ordered by MD. sp3 13:16 Discharged to home via wheelchair, ll1 13:16 Condition: stable 13:16 Discharge instructions given to patient, Instructed on discharge instructions, follow up and referral plans. medication usage, Demonstrated understanding of instructions, follow-up care, medications, Prescriptions given X 1, 13:17 Patient left the ED. ll1 Signatures: Dispatcher [employer] EDNC Anel Nash RN RN Marcela Mendenhall RN RN Gilbert Crawford RN RN ll1 Nava Cardoza MD MD sp3 Chelsea Singh al6
[2024-12-04] MEDS ORDERED: HYDROCODONE/APAP 5/325 MG TAB ONE (13:09)
[2024-12-04 13:22] VITALS: BP 127/62; TEMP 97.7; O2SAT 100
== END 2024-12-04 13:17 | disposition home or self-care (01) ==
LOC: ER 11:01
DX: S70.02XA Contusion of left hip, initial encounter (principal); I10 Essential (primary) hypertension; G89.29 Other chronic pain; Z96.643 Presence of artificial hip joint, bilateral; Z88.2 Allergy status to sulfonamides
CPT/HCPCS: 99283